=== PATIENT | female | born 1985 | race Caucasian/White ===

== ENCOUNTER 2017-07-03 17:46 | Observation (INO) | payer OTHER, MEDICAID, SELFPAY ==
[2017-07-03 19:34] VITALS: BP 124/69
[2017-07-03] MEDS: miSOPROStol 25 MCG TABLET VAG (19:51)
[2017-07-03 20:17] LABS: Add Manual Diff / Slide Review NO; Basophils Percent Auto 0.3 % (0-2); Eosinophils Percent Auto 0.9 % (2-4); Hematocrit 37.2 % (36-46); Hemoglobin 12.1 g/dL (12.0-16.0); Lymphocytes Percent Auto 17.4 % (25-40); Mean Corpuscular HGB Conc 32.6 % (30-36); Mean Corpuscular Hemoglobin 27.3 PG (26-34); Mean Corpuscular Volume 83.9 fL (80-100); Monocytes Percent Auto 6.6 % (3-14); Neutrophils Absolute Auto 8500 /uL (3000-5900); Neutrophils Percent Auto 74.8 % (50-75); Platelet Count 223 X10^3/uL (150-400); Red Blood Cell Count 4.43 X10^6/uL (4.0-5.2); Red Cell Distribution Width 16.8 % (11.6-14.8); White Blood Cell Count 11.3 X10^3/uL (4.5-11.0)
--- NOTE | 2017-07-04 08:03 | PM.OBHP.1 ---
OB HPI Date/Time Date of admission: 07/03/17 Date Patient Seen: 07/04/17 Time Patient Seen: 07:45 History of Present Illness Chief complaint: INDUCTION : 1 Para: 0 Estimated Date of Delivery: 07/03/17 Estimated Gestational Age (weeks): 40w1d Narrative: Julio Hay is a 32 year old woman at 40w1d who presented for induction of labor due to social issues. The pt and her live on [facility], [place] go into [place] independently. The pt denies any LOF, vaginal bleeding, or painful contractions. She is feeling baby move regularly. Indications Indication for induction OB: maternal distance History of Present care: initiated at week # (37) Dating criteria: based on 3rd trimester US only Ultrasounds: other (normal limited anatomy scan due to advanced gestation) Obstetrical complications: none Medical complications: none Preadmission Labs Blood type: O (+) positive -: Antibody screen: negative, GBS status: negative, HBsAG: negative, HIV: negative, HSV 1: positive, HSV 2: negative and RPR/VDLR: negative -: Rubella: not immune and Varicella: immune HCT: 36.8 HCAB: negative Urine: Negative 1 hr GTT: 128 PFSH Medical History No significant medical problems (Acute) Family History Father Hypertension Diabetes mellitus Mother Diabetes mellitus Social History lives independently: Yes marital status: number of children: 0 household members: spouse caregiver/support person: No housing: house current occupational exposures/hazards: No Hx Recent Travel: No Smoking Status: Never smoker substance use type: does not use Meds Generic Name Dose Route Start Last Admin Trade Name Freq PRN Reason Stop Dose Admin Fentanyl 50 mcg 07/03/17 18:47 Sublimaze IV Q1H PRN Moderate Pain Lactated Ringer's 1,000 mls @ 100 mls/hr 07/03/17 19:00 Lactated Ringers IV CONT DANETTE Lactated Ringer's 500 mls @ 1,000 mls/hr 07/03/17 18:47 Lactated Ringers IV PRN PRN intrauterine resuscitation Oxytocin/Lactated Ringer's 30 unit in 500 mls @ 3 mls/hr 07/04/17 08:00 Oxytocin Premix IV TITRATE DANETTE Protocol 3 MILLIUNIT/MIN Misoprostol 25 mcg 07/03/17 21:00 07/03/17 19:51 Cytotec VAG 25 mcg Q4HR DANETTE Administration Allergies Allergy/AdvReac Type Severity Reaction Status Date / Time Cephalosporins Allergy Mild Vomiting Verified 07/03/17 18:53 Review of Systems Review of Systems All systems reviewed & are unremarkable except as noted in HPI and below Exam Const General: cooperative, healthy appearing, comfortable and well groomed Orientation: alert, awake and oriented x3 Resp Auscultation: clear to auscultation bilaterally Cardio Rate: regular rate Rhythm: regular rhythm Heart Sounds: S1 normal, S2 normal and no murmurs GI Palpation: soft and No tender Manual OB Exam: dilated 2, effaced 50%, station -1 and other (soft, mid position) Presentation: vertex Estimated Weight (lbs): 7 Other: FHT baseline 130, moderate variability, accels present, no decels; Category 1 [place] contractions every 4-5min Extrem General: edema Objective Labs Result Diagrams: 07/03/17 19:05 Labs: Laboratory Results - last 24 hr 07/03/17 07/03/17 19:05 19:05 WBC 11.3 H RBC 4.43 Hgb 12.1 Hct 37.2 MCV 83.9 MCH 27.3 MCHC 32.6 RDW 16.8 H Plt Count 223 Neut % (Auto) 74.8 Lymph % (Auto) 17.4 L [place] % (Auto) 6.6 Eos % (Auto) 0.9 L Baso % (Auto) 0.3 Neut # (Auto) 8500 H Blood Type O Positive Antibody Screen Negative Assessment and Plan (1) 40 weeks gestation of : Current visit: Yes Status: Acute 32yo at 40w1d here for IOL due to social reasons with pt living on [facility]. Received cytotec x3 overnight with some improvement in cervical exam, Bishops score now 7. Rh positive, GBS negative. - Expectant management, anticipate - GBS negative no antibiotics indicated - FHT reassuring - Start pitocin, titrate up every 30 minutes as tolerated - Epidural for pain control when pt desires
--- NOTE | 2017-07-04 08:35 | P.HPOB_ITS ---
OB HPI Date/Time Date of admission: 07/03/17 Date Patient Seen: 07/04/17 Time Patient Seen: 07:45 History of Present Illness Chief complaint: INDUCTION : 1 Para: 0 Estimated Date of Delivery: 07/03/17 Estimated Gestational Age (weeks): 40w1d Narrative: Julio Hay is a 32 year old woman at 40w1d who presented for induction of labor due to social issues. The pt and her live on [facility], [place] she to go into labor independently. The pt denies any LOF, vaginal bleeding, or painful contractions. She is feeling baby move regularly. Indications Indication for induction OB: maternal distance History of Present care: initiated at week # (37) Dating criteria: based on 3rd trimester US only Ultrasounds: other (normal limited anatomy scan due to advanced gestation) Obstetrical complications: none Medical complications: none Preadmission Labs Blood type: O (+) positive -: Antibody screen: negative, GBS status: negative, HBsAG: negative, HIV: negative, HSV 1: positive, HSV 2: negative and RPR/VDLR: negative -: Rubella: not immune and Varicella: immune HCT: 36.8 HCAB: negative Urine: Negative 1 hr GTT: 128 PFSH Medical History No significant medical problems (Acute) Family History Father Hypertension Diabetes mellitus Mother Diabetes mellitus Social History lives independently: Yes marital status: number of children: 0 household members: spouse caregiver/support person: No housing: house current occupational exposures/hazards: No Hx Recent Travel: No Smoking Status: Never smoker substance use type: does not use Meds Generic Name Dose Route Start Last Admin Trade Name Freq PRN Reason Stop Dose Admin Fentanyl 50 mcg 07/03/17 18:47 Sublimaze IV Q1H PRN Moderate Pain Lactated Ringer's 1,000 mls @ 100 mls/hr 07/03/17 19:00 Lactated Ringers IV CONT DANETTE Lactated Ringer's 500 mls @ 1,000 mls/hr 07/03/17 18:47 Lactated Ringers IV PRN PRN intrauterine resuscitation Oxytocin/Lactated Ringer's 30 unit in 500 mls @ 3 mls/hr 07/04/17 08:00 Oxytocin Premix IV TITRATE DANETTE Protocol 3 MILLIUNIT/MIN Misoprostol 25 mcg 07/03/17 21:00 07/03/17 19:51 Cytotec VAG 25 mcg Q4HR DANETTE Administration Allergies Allergy/AdvReac Type Severity Reaction Status Date / Time Cephalosporins Allergy Mild Vomiting Verified 07/03/17 18:53 Review of Systems Review of Systems All systems reviewed & are unremarkable except as noted in HPI and below Exam Const General: cooperative, healthy appearing, comfortable and well groomed Orientation: alert, awake and oriented x3 Resp Auscultation: clear to auscultation bilaterally Cardio Rate: regular rate Rhythm: regular rhythm Heart Sounds: S1 normal, S2 normal and no murmurs GI Palpation: soft and No tender Manual OB Exam: dilated 2, effaced 50%, station -1 and other (soft, mid position ) Presentation: vertex Estimated Weight (lbs): 7 Other: FHT baseline 130, moderate variability, accels present, no decels; Category 1 [place] contractions every 4-5min Extrem General: edema Objective Labs Result Diagrams: 07/03/17 19:05 Labs: Laboratory Results - last 24 hr 07/03/17 07/03/17 19:05 19:05 WBC 11.3 H RBC 4.43 Hgb 12.1 Hct 37.2 MCV 83.9 MCH 27.3 MCHC 32.6 RDW 16.8 H Plt Count 223 Neut % (Auto) 74.8 Lymph % (Auto) 17.4 L [place] % (Auto) 6.6 Eos % (Auto) 0.9 L Baso % (Auto) 0.3 Neut # (Auto) 8500 H Blood Type O Positive Antibody Screen Negative Assessment and Plan (1) 40 weeks gestation of : Current visit: Yes Status: Acute 32yo at 40w1d here for IOL due to social reasons with pt living on [facility]. Received cytotec x3 overnight with some improvement in cervical exam, Bishops score now 7. Rh positive, GBS negative. - Expectant management, anticipate - GBS negative no antibiotics indicated - FHT reassuring - Start pitocin, titrate up every 30 minutes as tolerated - Epidural for pain control when pt desires
[2017-07-04] MEDS: LACTATED RINGERS 1,000 ML 100 ML IV (08:40)
[2017-07-04] MEDS: OXYTOCIN PREMIX 30 UNIT/500 ML PLAST..BAG IV (08:50)
== END 2017-07-04 17:15 | disposition home or self-care (01) ==
PROVIDERS: Admitting Provider Family Medicine; PCP Family Medicine; Visit Provider Family Medicine
DX: Z34.93 Encounter for supervision of normal pregnancy, unspecified, third trimester (principal); Z3A.40 40 weeks gestation of pregnancy
CPT/HCPCS: 36415; 59025; 59050; 59200; 85025; 86850; 86900; 86901; 96360; G0378; G0379; J2590